=== PATIENT | female | born 1970 | race Caucasian/White ===

== ENCOUNTER 2019-04-11 10:02 | Observation (INO) | payer OTHER, SELFPAY ==
[2019-04-11] VITALS (7 sets, daily range): BP systolic 103–124; BP diastolic 55–70; PULSE 74–86; RESP 16–17; TEMP 36.6–36.9; O2SAT 97–98; BMI 27.8; BMI 27.9
--- NOTE | 2019-04-11 12:39 | HP.PCM_ITS ---
Problem List (1) Seizure Status: Acute (2) CVA (cerebral vascular accident) Status: Acute History of Present Illness Date of Admission: 04/11/19 Chief Complaint: seizure The patient is a 48 year old F who denies pmhx, who was sent to [facility] from [facility] for seizure. This morning she initially had abnormal speech, her could not understand what she saying. She then became unresponsive and had uncontrollable muscle contractions while lying in bed, with tongue biting, no loss of bowel/bladder control. she was unresponsive for about a minute. She was brought by EMS to [place] where a CT head was done - negative, EKG showed NSR, and CT of the C spine was negative. She denies headache, and denies recently hitting her head at all. She states she was last normal 2 days prior. Yesterday she did not feel right. She had a headache, dizziness, and nausea. She denies hx of seizure or stroke. Currently she feels no headache, dizziness, LH, vision / hearing changes, slurred speech, focal weakness, parasthesias, or confusion. She denies recent illness or infection. 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 DRUG SAFETY History: No pertinent MANAGER DRUG SAFETY history Lives: Spouse/ Significant Other Smoking Status: Never smoker Tobacco Use: Non-smoker Alcohol: None Drugs: None - *Family History Maternal History Items: No pertinent history Paternal History Items: - - hemophilia Offspring History Items: - - hemophilia Review of Systems Constitutional: Denies: Chills, Fever, Weight Change HEENT: Denies: Head Aches, Sinus Congestion, Sinus Drainage Cardiovascular: Denies: Chest Pain, Palpitations Respiratory: Denies: Cough, Shortness of breath at rest, Sputum production Gastrointestinal: Denies: Abdominal Pain, Nausea, Vomiting Genitourinary: Denies: Dysuria Musculoskeletal: Denies: Joint Pain, Joint Tenderness Skin: Denies: Rash, Wounds Neurological: Reports: Change in Speech, Headaches, Seizures. Denies: Focal weakness, Numbness, Tingling Psychiatric: Denies: Anxiety, Depression, Homicidal Ideations, Suicidal Ideations Hematologic/ Lymphatic: Denies: Easy Bruising, Easy Bleeding VTE Information - Inpt Only VTE Present on Admission: No VTE Mechan Device Prophylaxis: SCD's VTE Pharm Prophylaxis ordered?: No Patient Problems: Active and Suspected Problems CVA (cerebral vascular accident) (Acute) Seizure (Acute) - Physical Exam General: Alert, Oriented x3, Cooperative HEENT: Atraumatic, PERRLA, EOMI, Normocephalic Neck: Supple, No JVD, Negative Carotid Bruits Lungs: Clear to auscultation, Normal air movement Cardiovascular: Regular rate, No murmurs Abdomen: Bowel Sounds Present, Soft, Non Tender Extremities: No edema, Capillary Refill Less than 3 Seconds Skin: No rashes, No breakdown Musculoskeletal: No Tenderness to Palpation of Joints or Extremities Neurological: Cranial nerves II-XII grossly intact Psych/Mental Status: Normal Affect, Appropriate, Alert and oriented to time, place, person, mood and affect Vital Signs Temp Pulse Resp BP Pulse Ox 98.0 F 81 16 124/60 H 97 04/11/19 10:30 04/11/19 11:35 04/11/19 10:30 04/11/19 10:30 04/11/19 10:30 Oxygen Delivery Method Room Air Weight: 172 lb 9.951 oz Body Mass Index (BMI) 27.8 Assessment/Plan All Active Problems CVA (cerebral vascular accident) (Acute) Seizure (Acute) 1. New onset seizure - CT brain and C spine negative. Neuro recommends: MRI brain with and without contrast pending. Check UA. TSH normal. Urine drug screen. Obtain EEG. No hx seizures or strokes. NIHSS ordered, seizure precautions ordered. 2. prediabetes - A1C 5.7 c/w prediabetes. 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 Dietary modification only ok for now. Recheck as outpatient 3-4 months. DVT ppx: lovenox DC planning: PTOTST evals. This patient was seen by Jameel Girard PA-C under the supervision of Dr. Abraham.
[2019-04-11 13:30] LABS: Hemoglobin A1c 5.7 % (4.2-6.3)
[2019-04-11 13:34] LABS: Thyroid Stim Hormone (TSH) 1.64 uIU/mL (0.358-3.74)
--- NOTE | 2019-04-11 14:20 | MRI_ITS ---
STUDY: MRI BRAIN WITH AND WITHOUT CONTRAST REASON FOR EXAM: Female, 48 years old. Seizure today and loss of consciousness TECHNIQUE: Standardized multiplanar fat and water weighted pulse sequences were obtained. 15 IV Dotarem was administered for the contrast portion of the examination. Motion limited exam. COMPARISON: None. FINDINGS: Normal size of the ventricles and extra-axial spaces for the patient's age. Normal white matter tracts of the supratentorial brain. 6-7 mm focus of T2 lengthening right frontal centrum semiovale. Normal bilateral basal ganglia. Normal thalami. There is no extra-axial fluid accumulation. Normal flow voids within the major intracranial circulation suggesting patency by spin echo criteria. Normal venous enhancement. There is no enhancing intra-axial or extra-axial abnormality. Normal sella turcica, pituitary gland, infundibular stalk, optic chiasm and hypothalamus. Normal tectal plate and pineal gland. Normal midbrain, venkat and medulla. Normal cerebellum. Normal basal cisterns. Normal bilateral temporal bones. Normal bilateral internal auditory canals. No demonstrated orbital abnormality, within the constraints of a routine brain study. Polyp or mucous retention cyst left maxillary sinus. Normal calvarium and skull base. Normal visualized soft tissue structures. Normal visualized upper cervical spine. MRI/Brain W/WO Contrast IMPRESSION: Prominent nonspecific right frontal white matter lesion as noted above. Electronically Signed: Erik Frey MD at 18:31 EDT , Service support ,
--- NOTE | 2019-04-11 14:51 | CON.PCM_ITS ---
Reason for Consult Date of Consultation: 04/11/19 Reason for Consultation: New onset seizure History of Present Illness: The patient is a 48 year old F with no PMH admitted with seizure. Per patient and her patient had possibly a generalized clonic tonic event this morning 04/11/2019, with loss of awareness, the event lasted about less than a minute per , with tongue bite, no urinary incontinence, with about 30 minutes of postictal state. Patient denies any headache or fever at present. Per patient she was possibly disoriented yesterday night. She denies any focal motor weakness, dizziness, speech disturbances, visual disturbances or sensory loss. Per patient she never had any witnessed seizures in the past. She denies any history of syncopal events. Per patient and they are under a lot of financial stress at present. Patient denies any sick contact, tick bite or fever at present. [] Past Medical History Allergies No Known Allergies Allergy (Verified 04/11/19 10:57) Surgical History: no surgical history Psychiatric History: No pertinent psych hx CERTIFIED ORTHOTIC FITTER History: No pertinent CERTIFIED ORTHOTIC FITTER history Lives: Spouse/ Significant Other Smoking Status: Never smoker Tobacco Use: Non-smoker Alcohol: None Drugs: None - *Family History Maternal History Items: No pertinent history Paternal History Items: - - hemophilia Offspring History Items: - - hemophilia Review of Systems Constitutional: Reports: - - Complete ROS negative except as documented in HPI Patient Problems: Active and Suspected Problems CVA (cerebral vascular accident) (Acute) Seizure (Acute) - Physical Exam General: Alert HEENT: Normocephalic Neck: Supple Lungs: Normal air movement Cardiovascular: Normal S1, Normal S2 Abdomen: Bowel Sounds Present Extremities: No cyanosis Neurological: - - Conscious, alert, AOA x3, CN II through XII grossly intact, power 5 out of 5 both upper and lower extremity's, no sensory loss, no cerebellar signs, gait deferred, reflexes + B/L B/S/T/K/A, no NR Psych/Mental Status: Normal Affect Vital Signs Temp Pulse Resp BP Pulse Ox 98.0 F 81 16 124/60 H 97 04/11/19 10:30 04/11/19 11:35 04/11/19 10:30 04/11/19 10:30 04/11/19 10:30 Oxygen Delivery Method Room Air Weight: 78.3 kg Body Mass Index (BMI) 27.8 Laboratory Tests Past 24 Hrs 04/11/19 04/11/19 12:55 12:55 Hemoglobin A1c 5.7 TSH 1.64 Assessment/Plan All Active Problems CVA (cerebral vascular accident) (Acute) Seizure (Acute) The patient is a 48 year old F with no PMH admitted with seizure. Per patient and her patient had possibly a generalized clonic tonic event this morning 04/11/2019, with loss of awareness, the event lasted about less than a minute per , with tongue bite, no urinary incontinence, with about 30 minutes of postictal state. Patient denies any headache or fever at present. Per patient she was possibly disoriented yesterday night. She denies any focal motor weakness, dizziness, speech disturbances, visual disturbances or sensory loss. Per patient she never had any witnessed seizures in the past. She denies any history of syncopal events. Per patient and they are under a lot of financial stress at present. Patient denies any sick contact, tick bite or fever at present. Patient transferred from [facility] where she was initially admitted with seizures. Impression New onset seizure versus STEVEN Plan ?Check MRI brain with and without contrast ?Check EEG ?Check UA, UDS, prolactin level. Labs done at the [facility]. ?At present since this is the first and only episode of seizure yet will not start any AEDs. If patient has another seizure then would consider starting AED at that time. ?Seizure precautions discussed in detail with patient ?Patient counseled not to drive for 6 months from seizure episode ?Avoid tramadol or antidepressants like Wellbutrin use in the future ?Fall precautions ?GI/DVT prophylaxis ?Further medical management hospitalist team ?Follow-up with neurology as outpatient in 4 to 6 weeks ?Please call with questions if any ?Thank you for allowing us to participate in patient's current management This note has been generated using [employer] dictation software. It may contain incorrect words, spellings and punctuation that were not noted in the review of the note prior to signing. Code Visit Inpatient E&M: 02921 Init Hosp L3
[2019-04-11 15:26] LABS: Prolactin 7.6 ng/mL
[2019-04-11] MEDS: LORazepam 2 MG/ML Syringe 1 MG IV (15:29)
[2019-04-11] MEDS: Atorvastatin Calcium 80 MG Tablet PO (20:44)
[2019-04-11 20:49] LABS: Bacteria 0 SEEN /hpf (None Seen); Mucous, Urine 0 SEEN /hpf (<or=2+); Red Blood Cells-Urine 0 SEEN /hpf (0-5); Squamous Epithelial Cells - UA 0 SEEN /hpf (5-10); White Blood Cells 0 SEEN /hpf (0-5)
[2019-04-11 20:52] LABS: Color, Urine Straw (Yellow); Glucose, Dipstick Normal (Normal); Ketone-Dipstick Negative (Negative); Leukocyte Esterase-Dipstick Negative /ul (Negative); Nitrite-Dipstick Negative (Negative); Occult Blood-Urine Negative /ul (Negative); Protein-Dipstick Negative (Negative); Urine Bilirubin Dipstick Negative (Negative); Urine Clarity Clear (Clear); Urine Urobilinogen Normal (Normal); Urine pH 6.5 (5.0 - 8.0)
[2019-04-11 21:14] LABS: Amorphous Sediment 1+
[2019-04-11 21:17] LABS: Amphetamine Urine VISTA NEGATIVE (<1000 ng/mL); Barbiturate Urine VISTA NEGATIVE (< 200 ng/mL); Benzodiazepine Urine VISTA NEGATIVE (< 200 ng/mL); Cocaine Urine VISTA NEGATIVE (< 300 ng/mL); Ecstacy Urine VISTA NEGATIVE (< 500 ng/mL); Methadone Urine VISTA NEGATIVE (< 300 ng/mL); PCP Urine VISTA NEGATIVE (< 25 ng/mL); THC Urine VISTA NEGATIVE (< 50 ng/mL); Vista UDS pH Range 6
[2019-04-12 00:15] VITALS: PULSE 70
[2019-04-12 03:04] VITALS: PULSE 70
[2019-04-12 04:10] VITALS: BP 112/62; PULSE 68; RESP 15; TEMP 36.6; O2SAT 99
[2019-04-12 05:51] LABS: Absolute Lymphocyte Count 1.43 X10^3/uL (0.83-4.51); Absolute Neutrophil Count 5.5 X10^3/uL (2.0-7.7); Basophil# 0.03 X10^3/uL; Basophil% 0.4 % (0-1); Eosinophil# 0.08 X10^3/uL; Hematocrit 42.4 % (37-47); Hemoglobin 13.9 g/dL (12.0-15.0); Lymphocyte # 1.43 X10^3/ul (4.0); Lymphocyte % 18.6 % (19-41); Mean Corp Hgb Conc 32.8 g/dL (32-36); Mean Corpuscular Hgb 29.4 pg (27.0-32.0); Mean Corpuscular Volume 89.6 fL (81-99); Mean Platelet Vol. 10.2 fl (6.2-12.0); Monocyte% 7.8 % (0-10); NRBC Flagged by Analyzer 0 % (0-5); Neutrophil # 5.53 X10^3/uL (2.7-7.7); Neutrophil % 71.8 % (47-70); Platelet Count 224 K/mm3 (150-450); RBC Distribution Width SD 40.1 fl (35.1-43.9); Red Blood Count 4.73 M/mm3 (4.2-5.4); White Blood Count 7.7 K/mm3 (4.4-11.0)
[2019-04-12 06:17] LABS: Anion Gap 6 (5-15); BUN 16 mg/dL (7-18); BUN/Creat Ratio 19.3 RATIO (10-20); Calcium,Total 8.8 mg/dL (8.5-10.1); Chloride 110 mmol/L (98-107); Cholesterol 197 mg/dL (200); Creatinine, Serum 0.83 mg/dL (0.55-1.02); EST Glomerular Filtration Rate 77 mL/min (>60); Est Glom Filt Rate - Afr Amer 93 mL/min (>60); Estimated Creatinine Clearance 75.91 ml/min; Glucose 91 mg/dL (74-106); High Density Lipoprotein 71 mg/dL; Potassium 3.5 mmol/L (3.5-5.1); Sodium Level 144 mmol/L (136-145); Triglycerides 80 mg/dL; Very Low Density Lipoprotein 16 mg/dL (5-40)
[2019-04-12 07:02] VITALS: PULSE 74
[2019-04-12 07:59] VITALS: BP 120/55; PULSE 75; RESP 18; TEMP 36.9; O2SAT 96
[2019-04-12] MEDS: Aspirin 81 MG TAB.CHEW PO (08:01)
--- NOTE | 2019-04-12 10:38 | CASEMGMT ---
SW met with patient, introduced self as well as role at [facility]. SW asked patient if she would like any resources for community since she did not have insurance. She said they have a primary care doctor. She is not normally on medications. She denies a need for any resources. Yodit CORTEZ MSW
--- NOTE | 2019-04-12 10:56 | DCINST_ITS ---
- Discharge Diagnoses Current Active Problems: Current Active and Chronic Problems CVA (cerebral vascular accident) (Acute) Seizure (Acute) You will use the following diet at home:: No restrictions Your food should be the consistency of: Regular Your liquids should be the consistency of: Regular/Thin Discharge Activity: May Not Drive - You may not drive for 6 months after a seizure. May resume sexual activity in: No Restrictions Call your doctor if you observe: Fever of 101 or Higher, Dizziness, Fainting spells, Swelling in the ankles, Chest pain, - - seizures Instructions: Epilepsy: How Seizures Affect the Body, Self-Care for Epilepsy, Diagnosing Epilepsy Additional Instructions: All your tests were negative. I do not know why you had a seizure. Because you have only had 1 seizure we are not going to start you on Anti-epileptic drugs. If you have another seizure then you may be started on medication at that time. You have to be seizure free for 6 months before you can drive. Dr. Deluca would like to see you in the office in 4-6 weeks. Pending Tests on Discharge: none Allergies/Adverse Reactions: Allergies No Known Allergies Allergy (Verified 04/11/19 10:57) Test Results: Test results from this visit will be discussed in further detail at your follow- up appointment, if applicable. Please Follow Up With: Aidee Deluca MD When: 4-6 weeks Proposed Discharge Date: 04/12/19
--- NOTE | 2019-04-12 11:13 | DS.PCM_ITS ---
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 Electronically Signed: Erik Frey MD at 18:31 EDT , Service support , Dr. 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 Her stated she had tonic-clonic activity and she bit her tongue( the tip of the tongue was bruised). She denied any incontinence. She denied any history of seizure disorder in the past. She did not recall the event. She was postictal when she awoke. She denied any recent head trauma. She denied any history of strokes in the past. A noncontrasted CT brain at [facility] was reportedly normal. She denied fever, chills, sweats, headache or neck stiffness. She was on no prescription medications. MRI of the brain showed a prominent nonspecific right frontal white matter lesion but no acute findings and specifically no ischemic CVA. Dr. Deluca was consulted from neurology. Dr. Deluca recommended an EEG, UA, prolactin level and urine drug screen. Antiepileptic drugs were held. TSH and prolactin were within normal limits. Hemoglobin A1c was 5.7. Echocardiogram showed an ejection fraction of 65% with normal diastology for age. Bubble contrast study was negative for right to left intra-atrial shunt. UA had 0 WBCs. Urine tox screen was negative. EEG showed a normal awake and asleep EEG with no epileptiform discharges or electrographic seizures noted during the recording. She was discharged home on 04/12/2019 on no antiepileptic drugs. She was instructed that she may not drive for 6 months following a seizure. She is going to reestablish herself with her primary care physician in [place]. She will follow-up with Dr. Deluca in the office in 4 to 6 weeks. Should she have another seizure she may be a candidate for AED's at that time. PHYSICAL EXAM: GENERAL: alert, oriented X 3, Cooperative, NAD ORAL: moist mucosa, no mucosal lesions NECK: No JVD, supple, trachea midline LUNGS: CTA, symmetric chest expansion HEART: RRR, Normal S1 and S2, no rub, no gallop ABDOMEN: soft, NT, ND, BS present, no guarding with palpation EXTREMITIES: no edema, no cyanosis, no calf tenderness SKIN: No rashes, no breakdown NEUROLOGIC: no focal neurologic deficits no seizure activity since admission PSYCH: appropriate, normal affect, pleasant This note was generated with [employer] dictation software. It may contain incorrect words, spelling, and punctuation that were not noted in checking the note before signing. - Physical Exam Vital Signs Temp Pulse Resp BP Pulse Ox 98.5 F 75 18 120/55 L 96 04/12/19 07:59 04/12/19 07:59 04/12/19 07:59 04/12/19 07:59 04/12/19 07:59 Oxygen Delivery Method Room Air Weight: 172 lb 9.951 oz Body Mass Index (BMI) 27.8 Intake and Output for Last 24 Hours 04/10/19 04/11/19 04/12/19 23:59 23:59 23:59 Intake Total 360 / 360 120 / 120 Balance 360 / 360 120 / 120 Laboratory Tests Past 24 Hrs 04/11/19 04/11/19 04/11/19 12:55 12:55 12:55 WBC RBC Hgb Hct MCV MCH MCHC RDW Std Deviation RDW Coeff of Chris Plt Count MPV Immature Gran % (Auto) Neut % (Auto) Lymph % (Auto) [place] % (Auto) Eos % (Auto) Baso % (Auto) Absolute Neuts (auto) Absolute Lymphs (auto) Nucleated RBC % Sodium Potassium Chloride Carbon Dioxide Anion Gap BUN Creatinine Estim Creat Clear Calc Est GFR (MDRD) Af Amer Est GFR (MDRD) Non-Af BUN/Creatinine Ratio Glucose Hemoglobin A1c 5.7 Calcium Triglycerides Cholesterol LDL Cholesterol VLDL Cholesterol HDL Cholesterol TSH 1.64 Prolactin 7.6 Urine Color Urine Clarity Urine pH Ur Specific [place] Urine Protein Urine Glucose (UA) Urine Ketones Urine Occult Blood Urine Nitrite Urine Bilirubin Urine Urobilinogen Ur Leukocyte Esterase Urine RBC Urine WBC Ur Squamous Epith Cells Amorphous Sediment Urine Bacteria Urine Mucus Urine Opiates Screen Urine Methadone Screen Ur Barbiturates Screen Ur Phencyclidine Scrn Ur Amphetamines Screen U Methamphetamin-MDMA U Benzodiazepines Scrn Urine Cocaine Screen U Cannabinoids Screen Ur Drug Screen Comment 04/11/19 04/11/19 04/12/19 20:40 20:40 05:20 WBC 7.7 RBC 4.73 Hgb 13.9 Hct 42.4 MCV 89.6 MCH 29.4 MCHC 32.8 RDW Std Deviation 40.1 RDW Coeff of Chris 12.0 Plt Count 224 MPV 10.2 Immature Gran % (Auto) 0.400 Neut % (Auto) 71.8 H Lymph % (Auto) 18.6 L [place] % (Auto) 7.8 Eos % (Auto) 1.0 Baso % (Auto) 0.4 Absolute Neuts (auto) 5.5 Absolute Lymphs (auto) 1.43 Nucleated RBC % 0 Sodium Potassium Chloride Carbon Dioxide Anion Gap BUN Creatinine Estim Creat Clear Calc Est GFR (MDRD) Af Amer Est GFR (MDRD) Non-Af BUN/Creatinine Ratio Glucose Hemoglobin A1c Calcium Triglycerides Cholesterol LDL Cholesterol VLDL Cholesterol HDL Cholesterol TSH Prolactin Urine Color Straw Urine Clarity Clear Urine pH 6.5 Ur Specific [place] 1.010 Urine Protein Negative Urine Glucose (UA) Normal Urine Ketones Negative Urine Occult Blood Negative Urine Nitrite Negative Urine Bilirubin Negative Urine Urobilinogen Normal Ur Leukocyte Esterase Negative Urine RBC 0 SEEN Urine WBC 0 SEEN Ur Squamous Epith Cells 0 SEEN Amorphous Sediment 1+ Urine Bacteria 0 SEEN Urine Mucus 0 SEEN Urine Opiates Screen NEGATIVE Urine Methadone Screen NEGATIVE Ur Barbiturates Screen NEGATIVE Ur Phencyclidine Scrn NEGATIVE Ur Amphetamines Screen NEGATIVE U Methamphetamin-MDMA NEGATIVE U Benzodiazepines Scrn NEGATIVE Urine Cocaine Screen NEGATIVE U Cannabinoids Screen NEGATIVE Ur Drug Screen Comment 04/12/19 05:20 WBC RBC Hgb Hct MCV MCH MCHC RDW Std Deviation RDW Coeff of Chris Plt Count MPV Immature Gran % (Auto) Neut % (Auto) Lymph % (Auto) [place] % (Auto) Eos % (Auto) Baso % (Auto) Absolute Neuts (auto) Absolute Lymphs (auto) Nucleated RBC % Sodium 144 Potassium 3.5 Chloride 110 H Carbon Dioxide 28.0 Anion Gap 6 BUN 16 Creatinine 0.83 Estim Creat Clear Calc 75.91 Est GFR (MDRD) Af Amer 93 Est GFR (MDRD) Non-Af 77 BUN/Creatinine Ratio 19.3 Glucose 91 Hemoglobin A1c Calcium 8.8 Triglycerides 80 Cholesterol 197 LDL Cholesterol 110 VLDL Cholesterol 16 HDL Cholesterol 71 TSH Prolactin Urine Color Urine Clarity Urine pH Ur Specific [place] Urine Protein Urine Glucose (UA) Urine Ketones Urine Occult Blood Urine Nitrite Urine Bilirubin Urine Urobilinogen Ur Leukocyte Esterase Urine RBC Urine WBC Ur Squamous Epith Cells Amorphous Sediment Urine Bacteria Urine Mucus Urine Opiates Screen Urine Methadone Screen Ur Barbiturates Screen Ur Phencyclidine Scrn Ur Amphetamines Screen U Methamphetamin-MDMA U Benzodiazepines Scrn Urine Cocaine Screen U Cannabinoids Screen Ur Drug Screen Comment Discharge Activity: May Not Drive - You may not drive for 6 months after a seizure. May resume sexual activity in: No Restrictions Call your doctor if you observe: Fever of 101 or Higher, Dizziness, Fainting spells, Swelling in the ankles, Chest pain, - - seizures Home Medications: Medications to take at Discharge traZODone [Desyrel] 50 - 100 mg PO QHS #60 tab 04/12/19 Following Prescrptions Were Given to Patient: traZODone [Desyrel] 50 - 100 mg PO QHS #60 tab Prescription Printed Please Follow Up With: Aidee Deluca MD When: 4-6 weeks Patient Instructions: Epilepsy: How Seizures Affect the Body, Diagnosing Epilepsy, Self-Care for Epilepsy Disposition: Home Minutes spent on discharge:: 30 Medical Necessity - Tobacco Use Smoking Status: Never smoker Tobacco Use: Non-smoker Meaningful Use Info Meaningful Use Diagnoses (Choose all that apply): None applicable Code Visit OBSV E&M: 55498 Observation care discharge
--- NOTE | 2019-04-12 14:18 | PCM.PN.NEU ---
Subjective: No issues overnight. MRI brain without contrast reported nothing acute, reported to show small right frontal nonspecific changes. No further seizures reported. - Physical Exam General: Alert HEENT: Normocephalic Neck: Supple Lungs: Normal air movement Cardiovascular: Normal S1, Normal S2 Abdomen: Bowel Sounds Present Extremities: No cyanosis Neurological: - - Conscious, alert, AOA x3, CN II through XII grossly intact, power 5 out of 5 both upper and lower extremity's, no sensory loss, no cerebellar signs, gait deferred, reflexes + B/L B/S/T/K/A, no NR Psych/Mental Status: Normal Affect Vital Signs Temp Pulse Resp BP Pulse Ox 98.5 F 75 18 120/55 L 96 04/12/19 07:59 04/12/19 07:59 04/12/19 07:59 04/12/19 07:59 04/12/19 07:59 Oxygen Delivery Method Room Air Weight: 78.3 kg Body Mass Index (BMI) 27.8 Intake and Output for Last 24 Hours 04/10/19 04/11/19 04/12/19 23:59 23:59 23:59 Intake Total 360 / 360 120 / 120 Balance 360 / 360 120 / 120 Laboratory Tests Past 24 Hrs 04/11/19 04/11/19 04/11/19 12:55 20:40 20:40 WBC RBC Hgb Hct MCV MCH MCHC RDW Std Deviation RDW Coeff of Chris Plt Count MPV Immature Gran % (Auto) Neut % (Auto) Lymph % (Auto) Barber % (Auto) Eos % (Auto) Baso % (Auto) Absolute Neuts (auto) Absolute Lymphs (auto) Nucleated RBC % Sodium Potassium Chloride Carbon Dioxide Anion Gap BUN Creatinine Estim Creat Clear Calc Est GFR (MDRD) Af Amer Est GFR (MDRD) Non-Af BUN/Creatinine Ratio Glucose Calcium Triglycerides Cholesterol LDL Cholesterol VLDL Cholesterol HDL Cholesterol Prolactin 7.6 Urine Color Straw Urine Clarity Clear Urine pH 6.5 Ur Specific [place] 1.010 Urine Protein Negative Urine Glucose (UA) Normal Urine Ketones Negative Urine Occult Blood Negative Urine Nitrite Negative Urine Bilirubin Negative Urine Urobilinogen Normal Ur Leukocyte Esterase Negative Urine RBC 0 SEEN Urine WBC 0 SEEN Ur Squamous Epith Cells 0 SEEN Amorphous Sediment 1+ Urine Bacteria 0 SEEN Urine Mucus 0 SEEN Urine Opiates Screen NEGATIVE Urine Methadone Screen NEGATIVE Ur Barbiturates Screen NEGATIVE Ur Phencyclidine Scrn NEGATIVE Ur Amphetamines Screen NEGATIVE U Methamphetamin-MDMA NEGATIVE U Benzodiazepines Scrn NEGATIVE Urine Cocaine Screen NEGATIVE U Cannabinoids Screen NEGATIVE Ur Drug Screen Comment 04/12/19 04/12/19 05:20 05:20 WBC 7.7 RBC 4.73 Hgb 13.9 Hct 42.4 MCV 89.6 MCH 29.4 MCHC 32.8 RDW Std Deviation 40.1 RDW Coeff of Chris 12.0 Plt Count 224 MPV 10.2 Immature Gran % (Auto) 0.400 Neut % (Auto) 71.8 H Lymph % (Auto) 18.6 L Barber % (Auto) 7.8 Eos % (Auto) 1.0 Baso % (Auto) 0.4 Absolute Neuts (auto) 5.5 Absolute Lymphs (auto) 1.43 Nucleated RBC % 0 Sodium 144 Potassium 3.5 Chloride 110 H Carbon Dioxide 28.0 Anion Gap 6 BUN 16 Creatinine 0.83 Estim Creat Clear Calc 75.91 Est GFR (MDRD) Af Amer 93 Est GFR (MDRD) Non-Af 77 BUN/Creatinine Ratio 19.3 Glucose 91 Calcium 8.8 Triglycerides 80 Cholesterol 197 LDL Cholesterol 110 VLDL Cholesterol 16 HDL Cholesterol 71 Prolactin Urine Color Urine Clarity Urine pH Ur Specific [place] Urine Protein Urine Glucose (UA) Urine Ketones Urine Occult Blood Urine Nitrite Urine Bilirubin Urine Urobilinogen Ur Leukocyte Esterase Urine RBC Urine WBC Ur Squamous Epith Cells Amorphous Sediment Urine Bacteria Urine Mucus Urine Opiates Screen Urine Methadone Screen Ur Barbiturates Screen Ur Phencyclidine Scrn Ur Amphetamines Screen U Methamphetamin-MDMA U Benzodiazepines Scrn Urine Cocaine Screen U Cannabinoids Screen Ur Drug Screen Comment Medical Necessity - Tobacco Use Smoking Status: Never smoker Tobacco Use: Non-smoker Assessment/Plan All Active Problems CVA (cerebral vascular accident) (Ruled-out) Seizure (Acute) The patient is a 48 year old F with no PMH admitted with seizure. Per patient and her patient had possibly a generalized clonic tonic event on the morning of 04/11/2019, with loss of awareness, the event lasted about less than a minute per , with tongue bite, no urinary incontinence, with about 30 minutes of postictal state. Patient denies any headache or fever at present. She denies any focal motor weakness, dizziness, speech disturbances, visual disturbances or sensory loss. Per patient she never had any witnessed seizures in the past. She denies any history of syncopal events. Per patient and they are under a lot of financial stress at present. Patient denies any sick contact, tick bite or fever at present. Patient transferred from [facility] where she was initially admitted with seizures. Impression New onset seizure versus STEVEN Plan ?MRI brain with and without contrast-nothing acute, small nonspecific right frontal changes ?Await EEG ?UA-neg, UDS-neg, prolactin level-normal. Labs done at the [facility]. ?At present since this is the first and only episode of seizure yet will not start any AEDs. If patient has another seizure then would consider starting AED at that time. ?Seizure precautions discussed in detail with patient ?Patient counseled not to drive for 6 months from seizure episode ?Avoid tramadol or antidepressants like Wellbutrin use in the future ?Fall precautions ?GI/DVT prophylaxis ?Further medical management hospitalist team ?Follow-up with neurology as outpatient in 4 to 6 weeks ?Please call with questions if any ?Thank you for allowing us to participate in patient's current management This note has been generated using [employer] dictation software. It may contain incorrect words, spellings and punctuation that were not noted in the review of the note prior to signing.
--- NOTE | 2019-04-12 15:18 | EEG ---
- Electroencephalogram Date of service 04/12/2019 History EEG is being done in this 48 yr F to rule out seizures EEG Description: This is an 18 channel EEG with 10-20 lead placement system. Bipolar montages, and Referential montages were reviewed. Photic stimulation and Hyperventilation were performed. The posterior dominant rhythm is 10 HZ synchronous, symmetric, reacting to eye opening and closing. Photo stimulation elicited normal driving response but no abnormal photoparoxysmal response, Hyperventilation did not elicit any abnormal photoparoxysmal response. Sleep was identified. There is no abnormal background slowing noted. There was no epileptiform discharges or electrographic seizures noted during this recording. EEG Interpretation This is a normal awake and asleep EEG. There is no epileptiform discharges or electrographic seizures noted during the record.
== END 2019-04-12 11:12 | disposition home or self-care (01) ==
PROVIDERS: Physician Assistant; Psychiatry & Neurology Neurology; Admitting Provider Internal Medicine; Referring Provider Internal Medicine; Visit Provider Internal Medicine
DX: R56.9 Unspecified convulsions (principal); R20.0 Anesthesia of skin; R73.03 Prediabetes; G93.9 Disorder of brain, unspecified
CPT/HCPCS: 36415; 70553; 80048; 80061; 80307; 81001; 83036; 84146; 84443; 85025; 87086; 87088; 92610; 93306; 95819; 96374; 97802; 99218; A9575; Q9957; A4216; G0378; G0379

== ENCOUNTER → 2024-09-10 | Outpatient (CLI) | payer SELFPAY | END | disposition home or self-care (01) | PROVIDERS: PCP Physician Assistant | DX: R56.9 Unspecified convulsions (principal) | CPT/HCPCS: 95819 ==

== ENCOUNTER → 2024-10-03 | Outpatient (CLI) | payer SELFPAY ==
--- NOTE | 2024-10-03 15:49 | MRI_ITS ---
PROCEDURE: MRI brain without and with IV contrast REASON FOR EXAM: Seizures TECHNIQUE: Multisequence multiplanar MR images of the brain were obtained before and after the administration of intravenous contrast. 15 mL of Clariscan were administered. COMPARISON: 04/11/2019 FINDINGS: No diffusion restriction to suggest acute/subacute ischemia. Cerebral volume is age-appropriate. Several hyperintense FLAIR signal foci in the bifrontal white matter statistically related to chronic small-vessel ischemic disease. No MR evidence suggestive of mesial temporal sclerosis. No evidence of acute intracranial hemorrhage, midline shift or mass effect. No evidence of chronic microhemorrhage. Globes are intact. Paranasal sinuses and mastoid air cells are clear. No pathologic enhancement. MRI/Brain W/WO Contrast IMPRESSION: 1. No acute process or suspicious enhancement. 2. Mild chronic small-vessel ischemic disease. Reading Location: [facility]
== END | disposition home or self-care (01) ==
LOC: MRI 15:43
PROVIDERS: PCP Physician Assistant
DX: R56.9 Unspecified convulsions (principal)
CPT/HCPCS: 70553; A9575